=== PATIENT | female | born 2000 | race Caucasian/White ===

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

== ENCOUNTER 2020-03-26 15:08 | Emergency (ER) | payer OTHER ==
[~2020-03-26] VITALS: Ht 157.5 cm; Wt 49.1 kg
[~2020-03-26 15:08] MED LIST changes: -LIDOCAINE 2% INJ 100 MG/5 ML SDV (FOR ANES.) As Ordered ONE; -propofoL 500 MG/50 ML VIAL As Ordered ONE
[2020-03-26] MEDS ORDERED: ONDANSETRON 4MG/2ML VIAL IV ONE (15:45)
[2020-03-26] MEDS ORDERED: KETOROLAC 30 MG/ML 1ML VIAL IV ONE (15:45)
[2020-03-26] MEDS ORDERED: MORPHINE 2 MG/ML 1ML VIAL (J2270) IV ONE (15:45)
[2020-03-26 16:01] LABS: BASO % 0.5 % (0.0-1.0); EOS # 0.1 10^3/uL (0.0-0.5); EOS % 1.2 % (0.0-3.0); HEMATOCRIT 41.8 % (36.0-47.0); HEMOGLOBIN 13.5 g/dl (12.0-15.5); LYMPH # 1.4 10^3/uL (1.5-5.0); MEAN CORPUSCULAR HEMOGLOBIN 26.5 pg (27.0-33.0); MEAN CORPUSCULAR HGB CONC 32.3 g/dl (32.0-36.5); MEAN CORPUSCULAR VOLUME 82.1 fl (80.0-96.0); MONO # 0.5 10^3/uL (0.0-0.8); MONO % 5.9 % (0.0-5.0); NEUTROPHILS # 5.6 10^3/uL (1.5-8.5); NEUTROPHILS % 73.3 % (36.0-66.0); PLATELET COUNT, AUTOMATED 332 10^3/uL (150-450); RED BLOOD COUNT 5.09 10^6/uL (4.00-5.40); WHITE BLOOD COUNT 7.6 10^3/uL (4.0-10.0)
[2020-03-26 16:30] LABS: BILIRUBIN,DIRECT 0.2 MG/DL (0.0-0.2); BILIRUBIN,TOTAL 0.8 MG/DL (0.2-1.0); TOTAL PROTEIN 7.3 GM/DL (6.4-8.2)
[2020-03-26] MEDS ORDERED: PERC5TAB12 PO (17:57)
[2020-03-26] MEDS ORDERED: ZOFR4TAB16 PO (17:58)
[2020-03-26 18:21] VITALS: BP 114/53
--- NOTE | 2020-03-26 23:11 | REP ---
CT ABDOMEN AND PELVIS WITHOUT IV OR ORAL CONTRAST, RENAL STONE PROTOCOL: HISTORY: Left renal colic. 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 The lung bases are clear on axial CT images. The liver and the spleen are normal in size and homogeneous in texture. No abnormality is noted in the gallbladder or the pancreas. The adrenal glands are unremarkable. The spleen is normal in appearance. There is bilateral intrarenal nephrolithiasis. There are two or three calculi in the right kidney, and there is an intrarenal 6 mm mid pole calculus in the left kidney. There is moderate left-sided hydronephrosis visible on today's CT study. This is due to an obstructing calculus in the proximal ureter. This calculus measures 8 mm in greatest diameter on coronal and sagittal MPR images. There is periureteral edema. No bladder calculus is seen. The previously noted right-sided hydronephrosis has resolved. The obstructing proximal right ureteral calculus appears to have returned to the right kidney collecting system. The uterus is retroverted. There is a small quantity of physiologic fluid. Urinary bladder is unremarkable. IMPRESSION: Moderate left-sided hydronephrosis due to an obstructing proximal ureteral calculus 8 mm in greatest diameter located at the level of the L4 pedicle. Bilateral intrarenal nephrolithiasis. No right-sided hydronephrosis. Electronically Signed by Ming Harrell MD 03/27/2020 08:00 A
== END 2020-03-26 19:17 | disposition home or self-care (01) ==
LOC: M ED 15:08
DX: N20.1 Calculus of ureter (principal); N13.39 Other hydronephrosis; R11.0 Nausea; D68.2 Hereditary deficiency of other clotting factors; Z87.442 Personal history of urinary calculi; F17.200 Nicotine dependence, unspecified, uncomplicated
CPT/HCPCS: 74176; 80047; 80076; 81001; 83690; 84702; 85025; 87088; 87186; 96374; 96375; 99284; J1885; J2405

== ENCOUNTER 2020-03-28 11:56 | Day surgery (SDC) | payer OTHER ==
[~2020-03-28] VITALS: Ht 154.9 cm; Wt 47.7 kg
[~2020-03-28 11:56] MED LIST changes: +PERC5TAB12 PO; +ZOFR4TAB16 PO
[2020-03-28] MEDS ORDERED: ONDANSETRON 4MG/2ML VIAL IV ONE (12:30)
[2020-03-28] MEDS ORDERED: NS 1,000 ML IV SCH (12:30)
[2020-03-28] MEDS ORDERED: MORPHINE 2 MG/ML 1ML VIAL (J2270) IV ONE (12:30)
[2020-03-28] MEDS ORDERED: KETOROLAC 30 MG/ML 1ML VIAL IV ONE (12:30)
[2020-03-28 12:51] LABS: BASO % 0.2 % (0.0-1.0); EOS % 0.1 % (0.0-3.0); HEMATOCRIT 40.4 % (36.0-47.0); HEMOGLOBIN 13.3 g/dl (12.0-15.5); LYMPH # 0.9 10^3/uL (1.5-5.0); LYMPH % 5.4 % (24.0-44.0); MEAN CORPUSCULAR HEMOGLOBIN 26.8 pg (27.0-33.0); MEAN CORPUSCULAR HGB CONC 32.9 g/dl (32.0-36.5); MEAN CORPUSCULAR VOLUME 81.5 fl (80.0-96.0); MONO # 1.4 10^3/uL (0.0-0.8); MONO % 8.5 % (0.0-5.0); NEUTROPHILS # 13.7 10^3/uL (1.5-8.5); NEUTROPHILS % 85.5 % (36.0-66.0); PLATELET COUNT, AUTOMATED 301 10^3/uL (150-450); RED BLOOD COUNT 4.96 10^6/uL (4.00-5.40); WHITE BLOOD COUNT 16.1 10^3/uL (4.0-10.0)
[2020-03-28] MEDS ORDERED: LORazepam 2 MG/ML VIAL IV STA (12:54)
[2020-03-28] MEDS ORDERED: LORazepam 2 MG/ML VIAL As Ordered ONE (13:01)
[2020-03-28 13:13] LABS: BLOOD UREA NITROGEN 17 MG/DL (7-18); CALCIUM LEVEL 8.7 MG/DL (8.5-10.1); CARBON DIOXIDE LEVEL 26 MEQ/L (21-32); CHLORIDE LEVEL 102 MEQ/L (98-107); GLUCOSE, FASTING 112 MG/DL (70-100); POTASSIUM SERUM 3.7 MEQ/L (3.5-5.1); SODIUM LEVEL 135 MEQ/L (136-145)
[2020-03-28 14:12] LABS: HCG, SERUM QUALITATIVE NEGATIVE (NEGATIVE)
[2020-03-28] MEDS ORDERED: LIDOCAINE 2% 100MG/5ML SDV (FOR ANES.) As Ordered ONE ×2 (14:13→17:21)
[2020-03-28] MEDS ORDERED: propofoL 200 MG/20 ML VIAL As Ordered ONE ×2 (14:13→17:21)
[2020-03-28] MEDS ORDERED: MIDAZOLAM INJ 2MG/2ML VIAL (J2250 PER 1MG) As Ordered ONE ×2 (14:13→17:20)
[2020-03-28] MEDS ORDERED: ROCURONIUM BROMIDE 50 MG/5 ML VIAL As Ordered ONE (14:13)
[2020-03-28] MEDS ORDERED: ONDANSETRON 4MG/2ML VIAL As Ordered ONE ×2 (14:14→17:21)
[2020-03-28] MEDS ORDERED: fentaNYL 100 MCG/2 ML INJECTION (J3010) As Ordered ONE ×2 (14:14→17:20)
[2020-03-28] MEDS ORDERED: dexameTHASONE 4 MG/ML 1ML VIAL (J1100 PER 1MG) As Ordered ONE ×2 (14:14→17:21)
[2020-03-28] MEDS ORDERED: GENTAMICIN SULF 80MG/2ML VIAL As Ordered ONE (17:13)
[2020-03-28] MEDS ORDERED: VANCOMYCIN 1000MG/20ML VIAL As Ordered ONE (17:13)
[2020-03-28] MEDS ORDERED: GENTAMICIN 80 MG in IV 1 EA IV SCH (17:15)
[2020-03-28] MEDS ORDERED: VANCOMYCIN HCL 1,000 MG, VIAL MATE ADAPTER 1 EACH in D5W 250 ML IV ONE (17:15)
[2020-03-28] MEDS ORDERED: KETOROLAC 60MG 2ML VIAL As Ordered ONE (17:20)
[2020-03-28] MEDS ORDERED: ePHEDrine SULFATE 25 MG/5 ML(5MG/ML) SYRINGE As Ordered ONE (17:21)
[2020-03-28] MEDS ORDERED: PHENYLephrine HCL 500 MCG/5 ML (100MCG/ML) SYRINGE (J2370) As Ordered ONE (17:21)
[2020-03-28] MEDS ORDERED: ISOVUE-300 61% 50ML VIAL As Ordered ONE (17:39)
[2020-03-28] MEDS ORDERED: GLYCOPYRROLATE INJ 0.2 MG/ML 2 ML VIAL As Ordered ONE (17:53)
[2020-03-28] MEDS ORDERED: ONDANSETRON 4MG/2ML VIAL IV PRN (19:00)
[2020-03-28] MEDS ORDERED: HYDROMORPHONE HCL 0.5 MG/ 0.5 ML SYRINGE (J1170 PER 1) IV PRN (19:00)
[2020-03-28] MEDS ORDERED: oxyCODONE 5MG TAB PO PRN (19:00)
[2020-03-28] MEDS ORDERED: NORCO, ANEXSIA 5/325MG TABLET (HYDROcodone/ACETAMINOPHEN) PO PRN (19:00)
[2020-03-28] MEDS ORDERED: fentaNYL 100 MCG/2 ML INJECTION (J3010) IV PRN (19:00)
[2020-03-28] MEDS ORDERED: LR 1,000 ML IV SCH (19:00)
[2020-03-28 19:28] VITALS: BP 112/65
--- NOTE | 2020-03-29 08:17 | REP ---
Retrograde pyelogram: Two views. History: Cystoscopy. Left stent placement. Comparison radiograph December 30, 2019. 12 seconds of fluoroscopy time is reported. Findings: A sequence of two last image hold fluoroscopically obtained spot radiographs document ureteral cannulation, contrast injection, and stent placement. Electronically Signed by Ming Harrell MD 03/29/2020 08:09 A
--- NOTE | 2020-03-31 13:42 | RO ---
DATE OF PROCEDURE: 03/28/2020 PREPROCEDURE DIAGNOSIS: Obstructing left ureteral stone. POSTPROCEDURE DIAGNOSIS: Obstructing left ureteral stone. PROCEDURE: Cystoscopy, left ureteral stent placement, left retrograde pyelogram with intraoperative interpretation of images. 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 ANESTHESIA: General. OPERATIVE INDICATIONS: This is a 19-year-old female who was found to have an obstructing 8 mm proximal left ureteral stone as well as a urinary tract infection. She is brought to the operating room today for stent placement. DESCRIPTION OF PROCEDURE: The patient brought to the operating room and general anesthesia was induced. Culture specific antibiotics were infused. She was then placed in a dorsal lithotomy position, prepped and draped in the usual sterile fashion. A rigid cystoscope was inserted into the urethral meatus and advanced to the bladder. A guidewire was advanced up the left collecting system. I then advanced a 5-Macedonian open-ended ureteral catheter over the guidewire into the left collecting system. The wire was removed and then a retrograde pyelogram was performed. It was notable for moderate left hydronephrosis, no extravasation. I then advanced the wire back up the left collecting system and the ureteral catheter was removed. I then utilized the wire to advance a 6-Macedonian x 22-32 cm JJ ureteral stent up into the left collecting system. The wire was removed and there were adequate curls of the stent in the left renal pelvis and in the bladder. The bladder was then emptied of all fluids and this marked the conclusion of the procedure. The patient was taken out of dorsal lithotomy position, awakened from anesthesia and transported to the recovery room in stable condition. ESTIMATED BLOOD LOSS: 5 mL. COMPLICATIONS: None. SPECIMENS: None. PLAN: We will treat the patient for a urinary tract infection. We will get her setup for a bilateral ureteroscopy and with laser lithotripsy in a few weeks, after her infection has been cleared. KHANH
== END 2020-03-28 19:40 | disposition home or self-care (01) ==
LOC: M ED 11:56 → M SDC 16:35
PROVIDERS: ATTEND Urology
DX: N20.1 Calculus of ureter (principal); F17.218 Nicotine dependence, cigarettes, with other nicotine-induced disorders; Z79.899 Other long term (current) drug therapy
CPT/HCPCS: 52332; 74420; 80048; 84703; 85025; 87486; 87581; 87633; 87798; 96374; 96375; 99284; C1769; C2617; J1100; J1580; J1885; J2060; J2250; J2270; J2370; J2405; J3010; J3370; Q9967

== ENCOUNTER → 2020-04-15 | Outpatient (CLI) | payer OTHER ==
[~2020-04-15] MED LIST changes: +OXYC1TAB23 PO
== END ==
LOC: M LABSMTC 11:00
PROVIDERS: ATTEND Anesthesiology
DX: Z01.818 Encounter for other preprocedural examination (principal); Z11.59 Encounter for screening for other viral diseases
CPT/HCPCS: C9803; U0003

== ENCOUNTER → 2020-04-19 | Outpatient (CLI) | payer OTHER | LOC: M LABSMTC 13:15 | PROVIDERS: ATTEND Anesthesiology | DX: Z01.818 Encounter for other preprocedural examination (principal); Z11.59 Encounter for screening for other viral diseases; Z20.828 Contact with and (suspected) exposure to other viral communicable diseases | CPT/HCPCS: C9803; U0003 ==

== ENCOUNTER 2020-04-24 11:18 | Day surgery (SDC) | payer OTHER ==
[~2020-04-24] VITALS: Ht 157.5 cm; Wt 46.2 kg
[~2020-04-24 11:18] MED LIST changes: +LIDOCAINE 1% MDV 20ML VIAL SQ PRN; +LR 1,000 ML IV ONE; -OXYC1TAB23 PO; +ceFAZolin SOD 2 GM in IV 1 EA IV ONE
[2020-04-24] MEDS ORDERED: OXYC1TAB23 PO (11:39)
[2020-04-24] MEDS ORDERED: CONRAY-60 60% 50ML VIAL (Q9961) As Ordered ONE (12:21)
[2020-04-24] MEDS ORDERED: LIDOCAINE 2% 100MG/5ML SDV (FOR ANES.) As Ordered ONE (12:42)
[2020-04-24] MEDS ORDERED: MIDAZOLAM INJ 2MG/2ML VIAL (J2250 PER 1MG) As Ordered ONE (12:42)
[2020-04-24] MEDS ORDERED: ONDANSETRON 4MG/2ML VIAL As Ordered ONE (12:42)
[2020-04-24] MEDS ORDERED: fentaNYL 100 MCG/2 ML INJECTION (J3010) As Ordered ONE (12:42)
[2020-04-24] MEDS ORDERED: propofoL 200 MG/20 ML VIAL As Ordered ONE (12:42)
[2020-04-24] MEDS ORDERED: dexameTHASONE 4 MG/ML 1ML VIAL (J1100 PER 1MG) As Ordered ONE (12:42)
[2020-04-24] MEDS ORDERED: ACETAMINOPHEN 1000MG 100ML IV BTL (OFIRMEV) (J0131 PER 10MG) As Ordered ONE (12:44)
[2020-04-24] MEDS ORDERED: ePHEDrine SULFATE 25 MG/5 ML(5MG/ML) SYRINGE As Ordered ONE (12:55)
[2020-04-24] MEDS ORDERED: ONDANSETRON 4MG/2ML VIAL IV PRN (14:00)
[2020-04-24] MEDS ORDERED: LR 1,000 ML IV SCH (14:00)
[2020-04-24] MEDS ORDERED: fentaNYL 100 MCG/2 ML INJECTION (J3010) IV PRN (14:00)
[2020-04-24] MEDS: oxyCODONE 5MG TAB PO PRN ×2 (14:14→14:57)
[2020-04-24] MEDS ORDERED: PERCOCET 5MG/325MG TAB PO PRN (14:15)
[2020-04-24 14:47] VITALS: BP 117/55
--- NOTE | 2020-04-24 15:52 | REP ---
Clinical: Bilateral nephrolithiasis on recent CT. Stent placement. Technique: Intraoperative fluoroscopic imaging. Findings: Single image demonstrates bilateral ureteral stents in satisfactory position. Total fluoroscopic time 26 seconds. Impression: Bilateral ureteral stents. Electronically Signed by Tyler Jameson MD 04/24/2020 02:27 P
[2020-05-22 14:43] LABS: CA Oxalate Dihy 30 % (.); Ca Ox Monohydrate 12 % (.); Size 4x2 mm (.)
--- NOTE | 2020-08-09 12:59 | RO ---
DATE OF OPERATION: 04/24/2020 PREOPERATIVE DIAGNOSIS: Kidney stones. POSTOPERATIVE DIAGNOSIS: Kidney stones. PROCEDURE: Cystoscopy, bilateral ureteroscopy with laser lithotripsy and basket extraction of stones, bilateral retrograde pyelograms with intraoperative interpretative images, left ureteral stent exchange, right ureteral stent placement. SURGEON: Hussein Hayes MD. BRICK [employer] MASON: None. ANESTHESIA: General. OPERATIVE INDICATIONS: This is a 19-year-old female who presented to the emergency room one month prior with a several left flank pain and was found to have an obstructing proximal left ureteral stone as well as nonobstructing stones in both kidneys. She had a left ureteral stent placed that day as she also had a urinary tract infection. She was brought to the operating room on April 24, 2020 to remove all of her stones. DESCRIPTION OF PROCEDURE: The patient was brought to the operating room and general anesthesia was induced. Prophylactic antibiotics were infused. She was placed in the dorsal lithotomy position, and prepped and draped in the usual sterile fashion. A rigid cystoscope was inserted into the urethral meatus and advanced into the bladder. The previously placed left ureteral stent was seen. It was grasped and withdrawn until the distal ends protruded from the urethral meatus. A guidewire was advanced up the stent into the left collecting system. The stent was then removed, leaving the wire in place. A ureteral access sheath was advanced up the wire into the left collecting system. A flexible ureteroscope was then advanced up the left collecting system. Within the proximal ureter, the obstructing stone was seen. The stone was fragmented into smaller pieces using a 272 micron laser fiber. A basket was used to remove all the stone fragments. There were additional stones inside the left kidney that were also fragmented and then removed using a basket. A retrograde pyelogram was performed and was negative for extravasation but notable for mild left hydronephrosis. The ureteroscope was then removed along with access sheath and no additional stones were seen inside the ureter. The guidewire was then utilized to advanced 6-Vincentian x 22-32 cm JJ ureteral stent up the left collecting system. The wire was then removed and there were adequate curls of the stent in the left renal pelvis and in the bladder. Next, a guidewire was advanced up the right collecting system. A ureteral access sheath was advanced over the wire. We then went up the access sheath to the flexible ureteroscope and within the right kidney, an approximately 5-6 mm stone was seen. The stone was fragmented into smaller pieces using the laser and then all the fragments were removed using a basket. A retrograde pyelogram was performed. It was notable for mild right hydronephrosis with no extravasation. The ureteroscope was then removed along with the access sheath and no additional stones were seen inside the ureter. The guidewire was then utilized to advance a 6 Vincentian x 22-32 cm JJ ureteral stent up the right collecting system. The wire was removed and there were adequate curls of the stent in the right renal pelvis and in the bladder. The bladder was emptied of all fluid. This marked the conclusion of the procedure. The patient was then taken out of the dorsal lithotomy position, awakened from anesthesia, and transported to the recovery room in stable condition. ESTIMATED BLOOD LOSS: 5 mL. COMPLICATIONS: None. SPECIMEN: Kidney stone fragment. PLAN: The patients ureteral stents will be removed in a few weeks. KHANH
== END 2020-04-24 16:21 | disposition home or self-care (01) ==
LOC: M SDC 11:18
PROVIDERS: ATTEND Urology
DX: N20.0 Calculus of kidney (principal); J45.909 Unspecified asthma, uncomplicated
CPT/HCPCS: 52356; 74420; 81025; 82365; 88300; C1769; C1894; C2617; J0131; J0690; J1100; J2250; J2405; J3010; Q9961

== ENCOUNTER 2020-05-05 21:42 | Emergency (ER) | payer OTHER ==
[~2020-05-05 21:42] MED LIST changes: -LIDOCAINE 1% MDV 20ML VIAL SQ PRN; -LR 1,000 ML IV ONE; +OXYC1TAB23 PO; -ceFAZolin SOD 2 GM in IV 1 EA IV ONE
== END 2020-05-05 23:00 | disposition left against medical advice (07) ==
LOC: M ED 21:42
DX: Z53.21 Procedure and treatment not carried out due to patient leaving prior to being seen by health care provider (principal)